=== PATIENT | male | born 2000 | race Caucasian/White ===

== ENCOUNTER 2021-01-21 18:54 | Emergency (ER) | payer OTHER ==
[~2021-01-21] VITALS: Ht 195.5 cm; Wt 127.0 kg
[~2021-01-21 18:54] MED LIST: AMOXICILLIN500 M2 PO; AMOXIL250 MG/5 M PO; BENADRYL12.5 MG/5 PO; FLONASE ALLERG9.9 ML NAS; PRELONE15 MG/5 ML PO
[2021-01-21] MEDS ORDERED: NAPROSYN500 MG PO (19:46)
[2021-01-21] MEDS ORDERED: METHOCARBAMOL750 M1 PO (19:46)
== END 2021-01-21 19:50 | disposition home or self-care (01) ==
LOC: ED 18:54
DX: S06.0X9A Concussion with loss of consciousness of unspecified duration, initial encounter (principal); S00.93XA Contusion of unspecified part of head, initial encounter; S60.512A Abrasion of left hand, initial encounter; S60.511A Abrasion of right hand, initial encounter; Z88.8 Allergy status to other drugs, medicaments and biological substances; Z79.899 Other long term (current) drug therapy; V89.2XXA Person injured in unspecified motor-vehicle accident, traffic, initial encounter; Y93.89 Activity, other specified; Y92.89 Other specified places as the place of occurrence of the external cause; Y99.8 Other external cause status